=== PATIENT | male | born 1940 | race Asian ===

== ENCOUNTER 2018-06-09 09:00 | Emergency (ER) | payer OTHER ==
[~2018-06-09] VITALS: Ht 165.1 cm; Wt 53.3 kg
[~2018-06-09 09:00] MED LIST: ACET-818 PO; ACET1TAB49 PO; CRES5 PO; LORA-52 PO; METO-335 PO; TRAM50TA PO; TRIA0.25 PO
[2018-06-09 09:02] VITALS: Ht 165.1 cm; Wt 53.3 kg
[2018-06-09] MEDS ORDERED: KETOROLAC 15 MG INJ IM STA (10:33)
[2018-06-09] MEDS ORDERED: ACET-141 PO (12:26)
[2018-06-09] MEDS ORDERED: IBUP-1542 PO (12:26)
--- NOTE | 2018-06-09 12:30 | ERD ---
ER Documentation Chief Complaint Chief Complaint B/L SHOULDER PAIN X 1 MONTH ROS All systems reviewed and are negative except as per history of present illness. Medications Home Meds Active Scripts Acetaminophen* (Acetaminophen*) 500 MG Extra Strength Tablet, 500 MG PO Q4H PRN for PAIN AND OR ELEVATED TEMP, #30 TAB Prov:PÉREZ GUNN DO 06/09/18 Ibuprofen* (Motrin*) 600 Mg Tab, 600 MG PO Q6H PRN for PAIN, #30 TAB Prov:PÉREZ GUNN DO 06/09/18 Reported Medications Acetaminophen-Codeine* (Tylenol No.3*) 1 Tab Tablet, 1 TAB PO NEDDED 03/19/12 Tramadol Hcl* (Ultram*) 50 Mg Tablet, 50 MG PO NEDDED 03/19/12 Metoprolol Succinate* (Toprol XL*) 25 Mg Tab.sr.24h, 25 MG PO DAILY 03/19/12 Loratadine (Alavert) 10 Mg Tablet, 10 MG PO NEDDE 03/19/12 Triazolam* (Halcion*) 0.25 Mg Tablet, 0.25 MG PO NEDDED 03/19/12 Rosuvastatin Calcium* (Crestor*) 5 Mg Tablet, 5 MG PO DAILY 03/19/12 Acetaminophen/Phenyltolx Cit (Asa Free Analgesic Tablet) 1 Tab Tablet, 81 MG PO DAILY 03/19/12 Allergies Allergies: Coded Allergies: No Known Allergy (Verified , 03/19/12) PMhx/Soc History of Surgery: No Anesthesia Reaction: No Hx Neurological Disorder: No Hx Respiratory Disorders: No Hx Cardiac Disorders: Yes (MILD CHF,ISCHEMIA) Hx Psychiatric Problems: No Hx Miscellaneous Medical Probl: Yes (HTN, MILD CHF, ISCHEMIA, ^LIPIDEMIA) Hx Alcohol Use: No Hx Substance Use: No Hx Tobacco Use: Yes Smoking Status: Never smoker Physical Exam Vitals Vital Signs Date Temp Pulse Resp B/P (MAP) Pulse Ox O2 O2 Flow FiO2 Time Delivery Rate 06/09/18 98.4 87 16 172/88 100 09:02 (116) Physical Exam Const: No acute distress Head: Atraumatic Eyes: Normal Conjunctiva ENT: Normal External Ears, Nose and Mouth. Neck: Full range of motion. No meningismus. Resp: Clear to auscultation bilaterally Cardio: Regular rate and rhythm, no murmurs Abd: Soft, non tender, non distended. Normal bowel sounds Skin: No petechiae or rashes Back: No midline or flank tenderness Ext: No cyanosis, or edema Neur: Awake and alert Psych: Normal Mood and Affect Result Diagram: 06/09/18 1122 06/09/18 1122 Results 24 hrs Laboratory Tests Test 06/09/18 11:22 White Blood Count 8.8 10^3/ul Red Blood Count 5.06 10^6/ul Hemoglobin 14.7 g/dl Hematocrit 44.9 % Mean Corpuscular Volume 88.7 fl Mean Corpuscular Hemoglobin 29.1 pg Mean Corpuscular Hemoglobin Concent 32.7 g/dl Red Cell Distribution Width 13.2 % Platelet Count 221 10^3/UL Mean Platelet Volume 9.6 fl Immature Granulocytes % 0.600 % Neutrophils % 66.4 % Lymphocytes % 24.7 % Monocytes % 5.7 % Eosinophils % 1.9 % Basophils % 0.7 % Nucleated Red Blood Cells % 0.0 /100WBC Immature Granulocytes # 0.050 10^3/ul Neutrophils # 5.9 10^3/ul Lymphocytes # 2.2 10^3/ul Monocytes # 0.5 10^3/ul Eosinophils # 0.2 10^3/ul Basophils # 0.1 10^3/ul Nucleated Red Blood Cells # 0.0 10^3/ul Sodium Level 141 mmol/L Potassium Level 5.3 mmol/L Chloride Level 103 mmol/L Carbon Dioxide Level 28 mmol/L Anion Gap 10 Blood Urea Nitrogen 22 mg/dl Creatinine 0.94 mg/dl Est Glomerular Filtrat Rate mL/min mL/min Glucose Level 88 mg/dl Calcium Level 9.8 mg/dl Total Bilirubin 0.2 mg/dl Direct Bilirubin 0.00 mg/dl Indirect Bilirubin 0.2 mg/dl Aspartate Amino Transf (AST/SGOT) 31 IU/L Alanine Aminotransferase (ALT/SGPT) 18 IU/L Alkaline Phosphatase 83 IU/L Total Protein 8.1 g/dl Albumin 4.6 g/dl Globulin 3.50 g/dl Albumin/Globulin Ratio 1.31 Current Medications Medications Dose Sig/Joe Start Time Status Last (Trade) Ordered Route PRN Stop Time Admin Dose Reason Admin Ketorolac 15 mg ONCE STAT 06/09/18 DC 06/09/18 Tromethamine IM 10:33 11:21 (Toradol) 06/09/18 10:35 Departure Diagnosis: Primary Impression: Shoulder pain Chronicity: chronic Laterality: unspecified laterality Qualified Codes: M25.519 - Pain in unspecified shoulder; G89.29 - Other chronic pain Additional Impression: Neck pain Condition: Fair Patient Instructions: Shoulder Pain (Uncertain Cause) Referrals: [facility] YOU HAVE RECEIVED A MEDICAL SCREENING EXAM AND THE RESULTS INDICATE THAT YOU DO NOT HAVE A CONDITION THAT REQUIRES URGENT TREATMENT IN THE EMERGENCY DEPARTMENT. FURTHER EVALUATION AND TREATMENT OF YOUR CONDITION CAN WAIT UNTIL YOU ARE SEEN IN YOUR DOCTORS OFFICE WITHIN THE NEXT 1-2 DAYS. IT IS YOUR RESPONSIBILITY TO MAKE AN APPOINTMENT FOR FOLOW-UP CARE. IF YOU HAVE A PRIMARY DOCTOR --you should call your primary doctor and schedule an appointment IF YOU DO NOT HAVE A PRIMARY DOCTOR YOU CAN CALL OUR PHYSICIAN REFERRAL HOTLINE AT IF YOU CAN NOT AFFORD TO SEE A PHYSICIAN YOU CAN CHOSE FROM THE FOLLOWING [facility] [address] [facility] [facility] [address] [facility] [facility] [facility] [address] [facility] [facility] [address] [facility]. [facility] [address] [facility]. [facility]. [address] Additional Instructions: Call your primary care doctor TOMORROW for an appointment during the next 1-2 days.See the doctor sooner or return here if your condition worsens before your appointment time. PÉREZ GUNN DO Jun 09, 2018 12:30
[2018-06-09 12:54] VITALS: BP 175/90; PULSE 69; RESP 18
== END 2018-06-09 12:55 | disposition home or self-care (01) ==
LOC: FTE 09:00
DX: M25.512 Pain in left shoulder (principal); M25.511 Pain in right shoulder; M54.2 Cervicalgia; I11.0 Hypertensive heart disease with heart failure; I50.9 Heart failure, unspecified; Z87.891 Personal history of nicotine dependence
CPT/HCPCS: 72040; 73030; 80053; 85025; 96372; 99284; J1885

== ENCOUNTER 2018-06-12 04:37 | Emergency (ER) | payer OTHER ==
[~2018-06-12] VITALS: Ht 200.7 cm; Wt 53.0 kg
[~2018-06-12 04:37] MED LIST changes: +ACET-141 PO; +IBUP-1542 PO
[2018-06-12 04:43] VITALS: BP 146/69; PULSE 112; RESP 20; Ht 200.7 cm; Wt 53.0 kg
== END 2018-06-12 05:21 | disposition left against medical advice (07) ==
LOC: E/R 04:37
DX: Z53.21 Procedure and treatment not carried out due to patient leaving prior to being seen by health care provider (principal)